=== PATIENT | male | born 1955 | race Two or more races ===

== ENCOUNTER 2018-11-06 11:51 | Emergency (ER) | payer OTHER ==
[~2018-11-06] VITALS: Ht 172.7 cm; Wt 95.3 kg
[2018-11-06] MEDS ORDERED: TAMS0.4C PO (12:09)
[2018-11-06] MEDS ORDERED: PRAVASTATIN SOD40 MG PO (12:09)
[2018-11-06] MEDS ORDERED: VITAMIN D-32000 UNIT PO (12:09)
[2018-11-06] MEDS ORDERED: CENTRUM SILVER1 EAC2 PO (12:10)
[2018-11-06] MEDS ORDERED: BETIMOL5 M1 OTIC (12:10)
[2018-11-06] MEDS ORDERED: ZOLOFT100 MG PO (12:10)
[2018-11-06] MEDS ORDERED: ALPHAGAN P5 M2 OTIC (12:11)
== END 2018-11-06 16:04 | disposition home or self-care (01) ==
LOC: ER 11:51
DX: M54.5 Low back pain (principal); M54.6 Pain in thoracic spine

== ENCOUNTER → 2018-11-21 | Outpatient (CLI) | payer OTHER ==
[~2018-11-21] MED LIST: ALPHAGAN P5 M2 OTIC; BETIMOL5 M1 OTIC; CENTRUM SILVER1 EAC2 PO; PRAVASTATIN SOD40 MG PO; TAMS0.4C PO; VITAMIN D-32000 UNIT PO; ZOLOFT100 MG PO
== END | disposition home or self-care (01) ==
LOC: MRI 10:58
DX: M54.89 Other dorsalgia (principal); M51.36 Other intervertebral disc degeneration, lumbar region
CPT/HCPCS: 72148